=== PATIENT | female | born 1950 | race Two or more races ===

== ENCOUNTER 2025-01-14 01:35 | Inpatient (IN) | payer OTHER ==
[~2025-01-14] VITALS: Ht 149.9 cm; Wt 55.1 kg
--- NOTE | 2025-01-14 02:04 | ECG ---
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
[2025-01-14 02:15] LABS: Hematocrit 49.8 % (36.0-46.0); Hemoglobin 16.8 g/dL (12.2-16.2); Mean Corpuscular Hemoglobin 31.9 pg (28.0-32.0); Mean Corpuscular Volume 94.5 fL (80.0-100.0); Nucleated Red Blood Cells % 0.1 %
--- NOTE | 2025-01-14 02:15 | ED.PDOC ---
History of Present Illness HPI Comments 74 year old female with PMHx HTN presents to the ED with a chief complaint of RT flank pain onset today. Patient states she began experiencing RLQ pain radiating to RT flank as well as rectal pain described as pressure sensation, nausea/vomiting, urinary frequency. Currently rates pain 10/10. Denies chest pa in, shortness of breath, hematuria, hematemesis, diarrhea, constipation, fever, chills. No other symptoms or modifying factors present at this time. PHYSICAL EXAM: General: Awake, alert and oriented. No acute distress. Skin: Skin in warm, dry and intact. Appropriate color for ethnicity. HEENT: The head is normocephalic and atraumatic. Conjunctivae are clear without exudates or hemorrhage. Sclera is non-icteric. Eyelids are normal in appearance without swelling or lesions. Oral mucosa is pink and moist Neck: The neck is supple with normal range of motion. No JVD. Cardiac: Heart rate and rhythm are normal. No murmurs, gallops, or rubs are auscultated. Respiratory: No signs of respiratory distress. Lung sounds are clear in all l obes bilaterally without rales, rhonchi, or wheezes. Abdominal: Abdomen is soft, right lower quadrant/right flank tenderness Extremities: Upper and lower extremities are atraumatic in appearance without deformity or edema. Neurological: The patient is awake, alert and oriented to person, place, and time with normal speech. Speech is clear. There is no facial asymmetry. Psychiatric: Appropriate mood and affect. Good judgement and insight. REVIEW OF SYSTEMS: General: No fever, no chills, or fatigue HEENT: No sore throat, no earache, no congestion, no neck pain. Cardiac: No chest pain. No palpitations. Lungs: No shortness of breath, no cough. GI: RLQ pain. rectal pain. no diarrhea, no constipation, no abdominal pain : RT flank pain. urinary frequency. No dysuria. No hematuria. Musculoskeletal: No joint pain , no joint swelling, no extremity edema. Skin: No rash, no itching. Neuro: No headache, no dizziness, no weakness (And as sated in HPI) Chief Complaint: Flank Pain Time Seen by MD: 02:00 Reviewed Notes: Medications, Allergies Allergies: Coded Allergies: Morphine (Verified Allergy, Unknown, 01/14/25) Uncoded Allergies: surgical tape (Allergy, Mild, 01/14/25) "breakdown skin, burn" Home Meds Reported Medications Fluoxetine HCl (Fluoxetine HCl) 20 Mg Cap, 2 CAP PO QAM 01/14/25 Simvastatin (Simvastatin) 40 Mg Tab, 1 TAB PO 01/14/25 Clonidine Hydrochloride (Clonidine Hcl) 0.1 Mg Tab, 1 TAB PO BID 01/14/25 Information Source: Patient, Spouse Mode of Arrival: Ambulatory Severity: Moderate Timing: Hours Duration: Since onset Prehospital treatment: None Past Medical History PAST MEDICAL HISTORY: HTN Surgical History: Denies all surgeries [employer]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 Was a procedure done?: No Differential Dx Considerations may include: Differential diagnosis includes but is not limited to pyelonephritis, nephrolithiasis, AAA, musculoskeletal pain, urinary tract infection, cholecystitis, appendicitis, other X-Ray, Labs, Meds, VS Vital Signs Date Time Temp Pulse Resp B/P (MAP) Pulse Ox O2 Delivery O2 Flow Rate FiO2 01/14/25 01:53 71 01/14/25 01:37 97.2 74 18 227/108 100 97.2 Lab Test 01/14/25 01:57 Range/Units White Blood Count 11.8 H 4.4-10.8 10^3/uL Red Blood Count 5.28 H 4.0-5.20 10^6/uL Hemoglobin 16.8 H 12.2-16.2 g/dL Hematocrit 49.8 H 36.0-46.0 % Mean Corpuscular Volume 94.5 80.0-100.0 fL Mean Corpuscular Hemoglobin 31.9 28.0-32.0 pg Mean Corpuscular Hemoglobin Concent 33.8 32.0-36.0 g/dL Red Cell Distribution Width 13.8 11.8-14.3 % Platelet Count 287 140-450 10^3/uL Mean Platelet Volume 8.5 6.9-10.8 fL Neutrophils (%) (Auto) 60.4 37.0-80.0 % Lymphocytes (%) (Auto) 28.5 10.0-50.0 % Monocytes (%) (Auto) 6.2 0.0-12.0 % Eosinophils (%) (Auto) 3.4 0.0-7.0 % Basophils (%) (Auto) 1.5 0.0-2.0 % Neutrophils # (Auto) 7.1 1.6-8.6 10 ^3/uL Lymphocytes # (Auto) 3.4 0.4-5.4 10 ^3/uL Monocytes # (Auto) 0.7 0-1.3 10 ^3/uL Eosinophils # (Auto) 0.4 0-0.8 10 ^3/uL Basophils # (Auto) 0.2 0-0.2 10 ^3/uL Nucleated Red Blood Cells 0.1 % Sodium Level 140 136-145 mmol/L Potassium Level 3.6 3.5-5.1 mmol/L Chloride Level 103 98-107 mmol/L Carbon Dioxide Level 23 20-31 mmol/L Anion Gap 14 5-15 Blood Urea Nitrogen 14 9-23 mg/dL Creatinine 0.92 0.550-1.02 mg/dL Glomerular Filtration Rate Calc 66 >90 mL/min BUN/Creatinine Ratio 15.2 10.0-20.0 Serum Glucose 109 H 74-106 mg/dL Calcium Level 10.2 8.7-10.4 mg/dL Current Medications Medications (Trade) Dose Ordered Sig/Cynthia Route Start Time Stop Time Status Last Admin Hydromorphone HCl (Dilaudid Injection) 0.5 mg ONCE ONCE IV 01/14/25 02:00 01/14/25 02:01 OH 01/14/25 05:58 Ondansetron HCl (Zofran) 4 mg ONCE ONCE IV 01/14/25 02:00 01/14/25 02:01 OH 01/14/25 05:58 Sodium Chloride 1,000 ml @ 1,000 mls/hr Q1H ONCE IV 01/14/25 02:00 01/14/25 02:59 OH 01/14/25 09:52 Clonidine HCl (Catapres Tablet) 0.1 mg ONCE ONCE PO 01/14/25 02:15 01/14/25 02:16 OH 01/14/25 05:53 Acetaminophen/ Hydrocodone Bitart ([place] 5/325MG Tab) 1 tab Q4HP PRN PO 01/14/25 05:30 01/14/25 17:07 Ondansetron HCl (Zofran) 4 mg Q4HP PRN IV 01/14/25 05:30 01/14/25 12:54 Sodium Chloride 1,000 ml @ 100 mls/hr Q10H ONCE IV 01/14/25 05:30 01/14/25 15:29 DC 01/14/25 12:54 Tamsulosin HCl (Flomax) 0.4 mg ONCE ONCE PO 01/14/25 05:30 01/14/25 08:47 DC 01/14/25 10:02 Lisinopril (Zestril Tablet) 20 mg ONCE ONCE PO 01/14/25 05:30 01/14/25 08:47 DC 01/14/25 09:14 Hydromorphone HCl (Dilaudid Injection) 0.5 mg Q4HPRN PRN IV 01/14/25 05:30 01/14/25 14:34 Time of 1ST Reevaluation: 02:30 Reevaluation 1ST: Unchanged Patient Education/Counseling: Diagnosis, Treatment, Need For Follow Up Family Education/Counseling: Diagnosis, Treatment, Need For Follow Up SEPSIS Sepsis Screen Date sepsis recognized/suspect: Jan 14, 2025 Time Sepsis recognized/suspect: 014 Recent Procedure: No On Antibiotic Therapy: No Respiratory Rate >20: No Heart Rate >90: No Temp<36 C (96.8 F) or >38.3 C: No SBP <90 or MAP <65 mmHG: No New Acute Mental Status Change: No Is the patient on CPAP, BIPAP,: No Physician Orders Ct Ab Pel Wo Con-No Oral Or Iv (01/14/25 01:59) Vital Signs Date Time Temp Pulse Resp B/P (MAP) Pulse Ox O2 Delivery O2 Flow Rate FiO2 01/14/25 01:53 71 01/14/25 01:37 97.2 74 18 227/108 100 97.2 Laboratory Tests Test 01/14/25 01:57 White Blood Count 11.8 10^3/uL (4.4-10.8) H Departure 1 Departure Time of Disposition: 03:55 Impression: Primary Impression: Nephrolithiasis Additional Impressions: Hydronephrosis Hypertension Disposition: ADMITTED INPATIENT Condition: Other Comments Patient admitted to hospitalist service for further treatment, evaluation and monitoring. Critical Care Note Critical Care Time?: No Stability Stability form required: No Heart Score Heart Score: Heart Score Response (Comments) Value History N/A 0 EKG N/A 0 Age N/A 0 Risk Factors N/A 0 Troponin N/A 0 Total 0 I personally scribed for GUS MONTIEL MD ([email or web address]) on 01/14/25 at 02:15. Electronically submitted by Erika Dowell ([email or web address]). GUS MONTIEL MD Jan 14, 2025 02:15
[2025-01-14 02:27] LABS: Chloride 103 mmol/L (98-107); Potassium 3.6 mmol/L (3.5-5.1); Sodium 140 mmol/L (136-145)
[2025-01-14 02:28] LABS: Anion Gap 14 (5-15); Calcium 10.2 mg/dL (8.7-10.4); Carbon Dioxide 23 mmol/L (20-31)
[2025-01-14 02:33] LABS: BUN/Creatinine Ratio 15.2 (10.0-20.0); Blood Urea Nitrogen 14 mg/dL (9-23)
[2025-01-14 02:42] LABS: Glucose 109 mg/dL (74-106)
--- NOTE | 2025-01-14 03:07 | DVH ---
Exam: CT CT AB PEL WO CON-NO ORAL OR IV History: Flank Pain Comparison Study: None TECHNIQUE: Multidetector CT of the abdomen and pelvis was performed from lung bases to pubic symphysis. Imaging was performed without IV contrast. Axial, coronal and sagittal multiplanar reformats were obtained from the axial data set by the technologist. Radiation optimization: All CT scans at this facility use at least one of these dose optimization techniques: automated exposure control mA and/or kV adjustment per patient size (includes targeted exams where dose is matched to clinical indication) or iterative reconstruction. Radiation Dose Information: CT Dose: CTDI volume is 5.64 mGy. Dose-length product is 299.46 mGy*cm FINDINGS: Evaluation of solid organs is limited due to lack of intravenous contrast use. Imaged portions of the lung bases appear unremarkable. There are coronary artery calcifications. Calcified left hilar lymph node. There is a small to moderate hiatal hernia. Several hypodensities within the liver appear to represent cysts, however there is a ill-defined hypodensity measuring 5.3 cm in the right hepatic lobe which is indeterminate. Several hepatic calcifications. Gallbladder appears absent. Spleen, pancreas appear unremarkable. The adrenal glands appear mildly prominent without focal nodule. There is moderate to severe right hydronephrosis secondary to 0.9 cm calculus in the distal right ureter the ureter is tortuous with potentially a additional 0.4 cm calculus in the mid ureter. 3 additional 1 mm calculi are noted in the right kidney and 2 additional nonobstructing 1 mm calculi are noted in the left kidney. There is perinephric fat stranding and fluid. No evidence of bowel obstruction or focal bowel wall thickening. Scattered colonic diverticulosis. Chronic appearing compression deformity of L2 and T12. No suspicious osseous lesion. IMPRESSION: 1. Moderate to severe right hydronephrosis secondary to 0.9 cm calculus in the distal right ureter. The ureter is tortuous with probable additional 0.4 cm calculus in the mid ureter. 2. Additional nonobstructing bilateral renal calculi. 3. Indeterminate 5.3 cm hypodensity in the right hepatic lobe, neoplasm must be excluded. Recommend further evaluation with nonemergent CT/ MRI of the abdomen with and without contrast. 4. Small to moderate hiatal hernia. 5. Colonic diverticulosis.
[2025-01-14] MEDS ORDERED: ACETAMINOPHEN 325 MG TAB PO PRN (05:30)
--- NOTE | 2025-01-14 05:36 | DVHHPRES ---
History of Present Illness Resident Creating Document: EMELIA PINEDA History of Present Illness Patient is a 74-year-old female with past medical history of HTN, presented to [facility] ED with complaint of right flank pain that began today. The patient reports initial onset of right lower quadrant pain radiating to the right flank, accompanied by rectal pressure, nausea, vomiting, and urinary frequency. She currently rates the pain as 10/10. She denies chest pain, shortness of breath, hematuria, hematemesis, diarrhea, constipation, fever, and chills. On evaluation in the ED, patient is afebrile, blood pressure is 227/109 mmHg, vitals are stable. Initial labs show WBC 11.8, hemoglobin 16.8, hematocrit 49.8. Abdominal CT shows moderate to severe right hydronephrosis secondary to 0.9 cm calculus in the distal right ureter. The patient was placed NPO, started on IV antibiotics and IV fluids. Patient is admitted for further evaluation and management. Review of Systems Review of Systems Eyes: No Pain, No Vision change, No Conjunctivae inflammation, No Eyelid inflammation, No Other, No Redness ENT: No Ear pain, No Ear discharge, No Nose pain, No Nose discharge, No Nose congestion, No Mouth pain, No Mouth swelling, No Throat pain, No Throat swelling, No Other Cardiovascular: No Chest Pain, No Palpitations, No Orthopnea, No Paroxysmal No Dyspnea, No Edema, No Lt Headedness, No Other Respiratory: No Cough, No Dry, No Shortness of breath, No SOB with exertion, No Wheezing, No Hemoptysis, No Pleuritic Pain, No Sputum, No Other Gastrointestinal: Nausea, Vomiting, Abdominal Pain, flank pain, No Diarrhea, No Constipation, No Melena, No Hematochezia, No Other Genitourinary: No Dysuria, No Frequency, No Incontinence, No Hematuria, No Retention, No Other Musculoskeletal: No other, No neck pain, No shoulder pain, No arm pain, No back pain, No hand pain, No leg pain, No foot pain Skin: No Rash, No Lesions, No Jaundice, No Bruising, No Other Exam Vital Signs Vital Signs Date Time Temp Pulse Resp B/P (MAP) Pulse Ox O2 Delivery O2 Flow Rate FiO2 01/14/25 01:53 71 01/14/25 01:37 97.2 18 227/108 100 97.2 Exam General Appearance: Cooperative. Well developed. Well nourished. NAD Head Exam: Normal inspection Neck Exam: Normal inspection. Non-tender. Normal alignment Pulmonary/Respiratory: Chest non-tender. Clear bilateral breath sounds, no crackles, no wheezing. Cardiovascular/Chest: Regular rate and rhythm. No murmurs. No JVD. Peripheral Pulses: 2+ Radial (R). 2+ Radial (L). 2+ Pedal (R). 2+ Pedal (L) Abdominal Exam: Normal bowel sounds. Soft. normal abdomen, no visible veins, Nontender. No hepatospenomegaly. No masses Gastrointestinal: RLQ pain. rectal pain. no diarrhea, no constipation, no abdominal pain Genitourinary: RT flank pain. urinary frequency. No dysuria. No hematuria. Ankle Exam: Negative ankle edema Lower extremities: Negative lower extremity edema Neuro/Mental Status: A&O x4. Coherent. Thoughts/Psych: Normal thought pattern. Appropriate mood and affect. Good judgement and insight Skin Exam: Normal inspection. Normal color. Warm. Dry Labs/Xrays Labs Test 01/14/25 01:57 Range/Units White Blood Count 11.8 H 4.4-10.8 10^3/uL Red Blood Count 5.28 H 4.0-5.20 10^6/uL Hemoglobin 16.8 H 12.2-16.2 g/dL Hematocrit 49.8 H 36.0-46.0 % Mean Corpuscular Volume 94.5 80.0-100.0 fL Mean Corpuscular Hemoglobin 31.9 28.0-32.0 pg Mean Corpuscular Hemoglobin Concent 33.8 32.0-36.0 g/dL Red Cell Distribution Width 13.8 11.8-14.3 % Platelet Count 287 140-450 10^3/uL Mean Platelet Volume 8.5 6.9-10.8 fL Neutrophils (%) (Auto) 60.4 37.0-80.0 % Lymphocytes (%) (Auto) 28.5 10.0-50.0 % Monocytes (%) (Auto) 6.2 0.0-12.0 % Eosinophils (%) (Auto) 3.4 0.0-7.0 % Basophils (%) (Auto) 1.5 0.0-2.0 % Neutrophils # (Auto) 7.1 1.6-8.6 10 ^3/uL Lymphocytes # (Auto) 3.4 0.4-5.4 10 ^3/uL Monocytes # (Auto) 0.7 0-1.3 10 ^3/uL Eosinophils # (Auto) 0.4 0-0.8 10 ^3/uL Basophils # (Auto) 0.2 0-0.2 10 ^3/uL Nucleated Red Blood Cells 0.1 % Sodium Level 140 136-145 mmol/L Potassium Level 3.6 3.5-5.1 mmol/L Chloride Level 103 98-107 mmol/L Carbon Dioxide Level 23 20-31 mmol/L Anion Gap 14 5-15 Blood Urea Nitrogen 14 9-23 mg/dL Creatinine 0.92 0.550-1.02 mg/dL Glomerular Filtration Rate Calc 66 >90 mL/min BUN/Creatinine Ratio 15.2 10.0-20.0 Serum Glucose 109 H 74-106 mg/dL Calcium Level 10.2 8.7-10.4 mg/dL SEPSIS Sepsis Screen Date sepsis recognized/suspect: Jan 14, 2025 Time Sepsis recognized/suspect: 0142 Recent Procedure: No On Antibiotic Therapy: No Respiratory Rate >20: No Heart Rate >90: No Temp<36 C (96.8 F) or >38.3 C: No SBP <90 or MAP <65 mmHG: No New Acute Mental Status Change: No Is the patient on CPAP, BIPAP,: No Physician Orders Ct Ab Pel Wo Con-No Oral Or Iv (01/14/25 01:59) Urinalysis (01/14/25 01:59) Vital Signs Date Time Temp Pulse Resp B/P (MAP) Pulse Ox O2 Delivery O2 Flow Rate FiO2 01/14/25 01:53 71 01/14/25 01:37 97.2 74 18 227/108 100 97.2 Laboratory Tests Test 01/14/25 01:57 White Blood Count 11.8 10^3/uL (4.4-10.8) H Assessment/Plan Assessment/Plan Right nephrolithiasis Right hydronephrosis Nonobstructing bilateral renal calculi Urine tract infection Active abdominal pain due to above Abdomen/Pelvis CT: Moderate to severe right hydronephrosis secondary to 0.9 cm calculus in the distal right ureter. The ureter is tortuous with probable additional 0.4 cm calculus in the mid ureter. Additional nonobstructing bilateral renal calculi. Urology consult UA and UDS urine culture Hepatic panel Magnesium pain management with Tylenol, [place] and Dilaudid Ceftriaxone IV daily Tamsulosin 0.4 mg p.o. Zofran 4 mg IV q4h IV NS 100 MLS/HR one Right hepatic nodule Hiatal hernia Colonic diverticulosis Abdomen/Pelvis CT: Indeterminate 5.3 cm hypodensity in the right hepatic lobe, neoplasm must be excluded. Recommend further evaluation with nonemergent CT/ MRI of the abdomen with and without contrast. Small to moderate hiatal hernia. Colonic diverticulosis. Hypertensive urgency Clonidine 0.1 MG PO once Lisinopril 20 MG PO daily Diet: Cardiac Goals of care: Full code, discussed for >30 minutes on 01/14/25 Plan discussed with patient Plan discussed with Dr. La Plan discussed with: Patient, Spouse Date of Service: Jan 14, 2025 Billing Provider: DEBORA LA MD Common Visit Codes: 92149-AGIBBMT INP/OBS CARE (HIGH) Secondary Visit Codes: 31419-ISKHACIJ CARE PLAN 30 MINUTES EMELIA PINEDA RESIDENT Jan 14, 2025 05:36
[2025-01-14] MEDS: ONDANSETRON HCL 4 MG/2 ML VIAL IV ONE (05:58)
[2025-01-14] MEDS: HYDROmorphone HCL 2 MG/ML VL/or syr IV ONE ×2 (05:58→09:23)
[2025-01-14 07:18] LABS: Hematocrit 44.5 % (36.0-46.0); Hemoglobin 14.9 g/dL (12.2-16.2); Mean Corpuscular Hemoglobin 31.6 pg (28.0-32.0); Mean Corpuscular Volume 94.3 fL (80.0-100.0); Nucleated Red Blood Cells % 0.0 %
[2025-01-14 07:34] LABS: Alanine Aminotransferase 26 U/L (7-40); Albumin 4.3 g/dL (3.2-4.8); Alkaline Phosphatase 97 U/L (46-116); Anion Gap 12 (5-15); BUN/Creatinine Ratio 17.5 (10.0-20.0); Blood Urea Nitrogen 10 mg/dL (9-23); Calcium 9.4 mg/dL (8.7-10.4); Carbon Dioxide 22 mmol/L (20-31); Potassium 3.8 mmol/L (3.5-5.1); Sodium 142 mmol/L (136-145); Total Protein 7.1 g/dL (5.7-8.2)
[2025-01-14 07:35] LABS: Albumin 4.4 g/dL (3.2-4.8); Alkaline Phosphatase 102.0 U/L (46-116); Chloride 108 mmol/L (98-107); Glucose 112 mg/dL (74-106); Magnesium 2.0 mg/dL (1.6-2.6); Total Protein 7.1 g/dL (5.7-8.2)
[2025-01-14 07:37] LABS: Bilirubin, Direct 0.3 mg/dL (<0.3); Bilirubin, Total 1.9 mg/dL (0.2-1.0)
[2025-01-14 07:38] LABS: Bilirubin, Total 1.9 mg/dL (0.2-1.0)
[2025-01-14 07:40] LABS: Alanine Aminotransferase 32.0 U/L (7-40)
[2025-01-14] MEDS: LISINOPRIL 20 MG TAB PO ONE (09:14)
[2025-01-14] MEDS: LISINOPRIL 20 MG TAB PO SCH (09:27)
[2025-01-14] MEDS: SODIUM CHLORIDE 0.9% 1,000 ML IV ONE ×2 (09:52→12:54)
[2025-01-14 09:56] VITALS: BP 148/85; PULSE 58; RESP 17; TEMP 97.8; O2SAT 96
--- NOTE | 2025-01-14 10:00 | DVH ---
INDICATION: hypodense lesion in the liver TECHNIQUE: Multiple real-time sonographic images were obtained of the right upper quadrant. COMPARISON: US ABDOMEN COMPLETE on DOS: 10/10/21 FINDINGS: The liver demonstrates heterogeneous echotexture. There is a echogenic mass measuring 4.4 cm. Hepatic cysts measuring up to 2.8 cm. The liver measures 14 cm. There is no intrahepatic or extrahepatic ductal dilatation. The common duct measures 5 mm. Gallbladder is surgically absent. The right kidney measures 10 cm. The right kidney is normal in contour, size, and shape. The echogenicity is normal. Hydronephrosis is better seen on recent CT. The pancreas is not well visualized due to overlying bowel gas. IMPRESSION: Coarsened liver echotexture suggestive of chronic liver disease. Echogenic mass measuring 4.4 cm in the right hepatic lobe is suspicious. Recommend further evaluation MRI liver phase protocol.
[2025-01-14] MEDS: TAMSULOSIN HYDROCHLORIDE 0.4 MG CAP PO ONE (10:02)
--- NOTE | 2025-01-14 10:54 | DVHINCON2 ---
Date of service: Jan 14, 2025 Referring Physician Hopitalist Reason for Consultation 9 mm right UVJ stone, impacted History of Present Illness 74 year old female with PMHx HTN presents to the ED with a chief complaint of RT flank pain onset today. Patient states she began experiencing RLQ pain radiating to RT flank as well as rectal pain described as pressure sensation, nausea/vomiting, urinary frequency. Currently rates pain 10/10. Denies chest pain, shortness of breath, hematuria, hematemesis, diarrhea, constipation, fever, chills. No other symptoms or modifying factors present at this time. Past Medical History HTN Allergies: Coded Allergies: Morphine (Verified Allergy, Unknown, 01/14/25) Uncoded Allergies: surgical tape (Allergy, Mild, 01/14/25) "breakdown skin, burn" Current Medications Current Medications Medications (Trade) Dose Ordered Sig/Cynthia Route PRN Reason Start Time Stop Time Status Last Admin Acetaminophen/ Hydrocodone Bitart (Maribel 5/325MG Tab) 1 tab Q4HP PRN PO MODERATE PAIN (4-6 PAIN SCALE) 01/14/25 05:30 Ondansetron HCl (Zofran) 4 mg Q4HP PRN IV NAUSEA / VOMITING 01/14/25 05:30 Acetaminophen (Tylenol Tablet) 650 mg Q6HP PRN PO PAIN SCALE 1-3 OR TEMP>100.4 01/14/25 05:30 Tamsulosin HCl (Flomax) 0.4 mg QPM PO 01/14/25 18:00 Ceftriaxone Sodium 50 ml @ 100 mls/hr DAILY@09 IV 01/14/25 09:00 01/14/25 10:08 Lisinopril (Zestril Tablet) 20 mg DAILY PO 01/14/25 10:00 Hydromorphone HCl (Dilaudid Injection) 0.5 mg Q4HPRN PRN IV SEVERE PAIN (7-10 PAIN SCALE) 01/14/25 05:30 Review of Systems General: No fever, no chills, or fatigue HEENT: No sore throat, no earache, no congestion, no neck pain. Cardiac: No chest pain. No palpitations. Lungs: No shortness of breath, no cough. GI: RLQ pain. rectal pain. no diarrhea, no constipation, no abdominal pain : RT flank pain. urinary frequency. No dysuria. No hematuria. Musculoskeletal: No joint pain , no joint swelling, no extremity edema. Skin: No rash, no itching. Neuro: No headache, no dizziness, no weakness (And as sated in HPI) Vital Signs Vital Signs Date Time Temp Pulse Resp B/P (MAP) Pulse Ox O2 Delivery O2 Flow Rate FiO2 01/14/25 09:56 97.8 58 17 148/85 (106) 96 97.8 Physical Exam General: Awake, alert and oriented. No acute distress. Skin: Skin in warm, dry and intact. Appropriate color for ethnicity. HEENT: The head is normocephalic and atraumatic. Conjunctivae are clear without exudates or hemorrhage. Sclera is non-icteric. Eyelids are normal in appearance without swelling or lesions. Oral mucosa is pink and moist Neck: The neck is supple with normal range of motion. No JVD. Cardiac: Heart rate and rhythm are normal. No murmurs, gallops, or rubs are auscultated. Respiratory: No signs of respiratory distress. Lung sounds are clear in all lobes bilaterally without rales, rhonchi, or wheezes. Abdominal: Abdomen is soft, non-tender without distention, guarding or rigidity. Bowel sounds are present and normoactive in all four quadrants. Extremities: Upper and lower extremities are atraumatic in appearance without deformity or edema. Neurological: The patient is awake, alert and oriented to person, place, and time with normal speech. Speech is clear. There is no facial asymmetry. Psychiatric: Appropriate mood and affect. Good judgement and insight. Labs/Diagnostic Data Labs Test 01/14/25 08:32 01/14/25 06:19 Range/Units White Blood Count 11.2 H 4.4-10.8 10^3/uL Red Blood Count 4.72 4.0-5.20 10^6/uL Hemoglobin 14.9 12.2-16.2 g/dL Hematocrit 44.5 # 36.0-46.0 % Mean Corpuscular Volume 94.3 80.0-100.0 fL Mean Corpuscular Hemoglobin 31.6 28.0-32.0 pg Mean Corpuscular Hemoglobin Concent 33.5 32.0-36.0 g/dL Red Cell Distribution Width 13.8 11.8-14.3 % Platelet Count 256 140-450 10^3/uL Mean Platelet Volume 8.8 6.9-10.8 fL Neutrophils (%) (Auto) 81.9 H 37.0-80.0 % Lymphocytes (%) (Auto) 13.5 10.0-50.0 % Monocytes (%) (Auto) 3.8 0.0-12.0 % Eosinophils (%) (Auto) 0.3 0.0-7.0 % Basophils (%) (Auto) 0.5 0.0-2.0 % Neutrophils # (Auto) 9.2 H 1.6-8.6 10 ^3/uL Lymphocytes # (Auto) 1.5 0.4-5.4 10 ^3/uL Monocytes # (Auto) 0.4 0-1.3 10 ^3/uL Eosinophils # (Auto) 0 0-0.8 10 ^3/uL Basophils # (Auto) 0.1 0-0.2 10 ^3/uL Nucleated Red Blood Cells 0.0 % Sodium Level 142 136-145 mmol/L Potassium Level 3.8 3.5-5.1 mmol/L Chloride Level 108 H 98-107 mmol/L Carbon Dioxide Level 22 20-31 mmol/L Anion Gap 12 5-15 Blood Urea Nitrogen 10 9-23 mg/dL Creatinine 0.57 # 0.550-1.02 mg/dL Glomerular Filtration Rate Calc 96 >90 mL/min BUN/Creatinine Ratio 17.5 10.0-20.0 Serum Glucose 112 H 74-106 mg/dL Hemoglobin A1c 4.9 <5.7 % A1C Calcium Level 9.4 8.7-10.4 mg/dL Magnesium Level 2.0 1.6-2.6 mg/dL Total Bilirubin 1.9 H 0.2-1.0 mg/dL Direct Bilirubin 0.3 <0.3 mg/dL Aspartate Amino Transferase (AST) 38 13-40 U/L Alanine Aminotransferase (ALT) 26 7-40 U/L Alkaline Phosphatase 97 46-116 U/L Total Protein 7.1 5.7-8.2 g/dL Albumin 4.3 3.2-4.8 g/dL Carcinoembryonic Antigen 6.60 <=5.0 ng/mL Vitamin B12 Level 564 211-911 pg/mL Vitamin D 25-Hydroxy 53.3 30.0-100 ng/mL Thyroid Stimulating Hormone (TSH) 0.61 0.55-4.78 uIU/mL PATIENT: AYAZ BRAVOAACCT: [id number] UNIT: [id number] : 1950 LOC: ER ROOM / BED: / AGE / SEX: 74 / F ADM STATUS: REG ER SERVICE [id number] ORDERING PHYSICIAN: GUS MONTIEL MD PROCEDURE(s): ABPL - CT AB PEL WO CON-NO ORAL OR IV REASON: Flank Pain ORDER NUMBER(s): [id number], ACCESSION NUMBER(s): [id number] Exam: CT CT AB PEL WO CON-NO ORAL OR IV History: Flank Pain Comparison Study: None TECHNIQUE: Multidetector CT of the abdomen and pelvis was performed from lung bases to pubic symphysis. Imaging was performed without IV contrast. Axial, coronal and sagittal multiplanar reformats were obtained from the axial data set by the technologist. Radiation optimization: All CT scans at this facility use at least one of these dose optimization techniques: automated exposure control mA and/or kV adjustment per patient size (includes targeted exams where dose is matched to clinical indication) or iterative reconstruction. Radiation Dose Information: CT Dose: CTDI volume is 5.64 mGy. Dose-length product is 299.46 mGy*cm FINDINGS: Evaluation of solid organs is limited due to lack of intravenous contrast use. Imaged portions of the lung bases appear unremarkable. There are coronary artery calcifications. Calcified left hilar lymph node. There is a small to moderate hiatal hernia. Several hypodensities within the liver appear to represent cysts, however there is a ill-defined hypodensity deniz uring 5.3 cm in the right hepatic lobe which is indeterminate. Several hepatic calcifications. Gallbladder appears absent. Spleen, pancreas appear unremarkable. The adrenal glands appear mildly prominent without focal nodule. There is moderate to severe right hydronephrosis secondary to 0.9 cm calculus in the distal right ureter the ureter is tortuous with potentially a additional 0.4 cm calculus in the mid ureter. 3 additional 1 mm calculi are noted in the right kidney and 2 additional nonobstructing 1 mm calculi are noted in the left kidney. There is perinephric fat stranding and fluid. No evidence of bowel obstruction or focal bowel wall thickening. Scattered colonic diverticulosis. Chronic appearing compression deformity of L2 and T12. No suspicious osseous lesion. IMPRESSION: 1. Moderate to severe right hydronephrosis secondary to 0.9 cm calculus in the distal right ureter. The ureter is tortuous with probable additional 0.4 cm calculus in the mid ureter. 2. Additional nonobstructing bilateral renal calculi. 3. Indeterminate 5.3 cm hypodensity in the right hepatic lobe, neoplasm must be excluded. Recommend further evaluation with nonemergent CT/ MRI of the abdomen with and without contrast. 4. Small to moderate hiatal hernia. 5. Colonic diverticulosis. ATED BY: DAYSI CR MD DICTATED DATE/TIME: 01/14/25305 SIGNED BY: DAYSI CR MD SIGNED DATE/TIME: 01/14/25305 Assessment Impacted 9 mm right UVJ stone Right hydronephrosis, severe Plan/Recommendation Right PNT placement Outpatient right URSLL TBA Plan discussed with: Patient, Other ROSAURA ACOSTA MD Jan 14, 2025 10:54
[2025-01-14 11:38] LABS: Urine Protein, UAD Negative (Negative)
[2025-01-14 11:48] LABS: Amphetamine Screen, Urine Neg (NEGATIVE); Barbiturate Scree,Urine Neg (NEGATIVE); Benzodiazephine Screen, Urine Neg (NEGATIVE); Cannabinoid Screen, Urine Pos (NEGATIVE); Cocaine Screen, Urine Neg (NEGATIVE); Opiate Scree,Urine Neg (NEGATIVE); Phencyclidine Screen, Urine Neg (NEGATIVE)
[2025-01-14] MEDS: ONDANSETRON HCL 4 MG/2 ML VIAL IV PRN (12:54)
[2025-01-14 13:00] VITALS: BP 171/89; PULSE 66; RESP 20; TEMP 97.9; O2SAT 96
--- NOTE | 2025-01-14 13:04 | DVH ---
Technique: Real-time ultrasound images through the bladder. Indication: look for ureteral jetting Comparison: 01/14/2025 Findings: Bladder volume of 88 cc. Bladder wall measures 3 mm in thickness. The bilateral ureteral jets are not definitively visualized Impression: Bilateral ureteral jets not definitively visualized.
[2025-01-14] MEDS: HYDROmorphone HCL 2 MG/ML VL/or syr IV PRN (14:34)
[2025-01-14 16:41] VITALS: BP_SYST 110; BP_SYST 168; BP_DIAS 77; BP_DIAS 89; PULSE 103; PULSE 69; RESP 18; RESP 20; TEMP 97.6; TEMP 98.4; O2SAT 96; O2SAT 99
--- NOTE | 2025-01-14 16:48 | DVH ---
CLINICAL HISTORY: ABNORMAL CT TECHNIQUE: MRI of the abdomen was performed with and without IV contrast. COMPARISON: US ABDOMEN COMPLETE on DOS: 10/10/21 FINDINGS: The spleen, pancreas, adrenal glands, and left kidney are unremarkable. The gallbladder is absent. There is [id number] right hydroureteronephrosis and perinephric fluid secondary to stone seen on CT performed earlier in the day. At the right hepatic dome, there is a 5.6 cm T2 hyperintense lesion which demonstrates arterial discontinuous hyperenhancement which increases on portal venous and equilibrium phase images, and compatible with a hemangioma. There are numerous scattered liver cysts. The abdominal aorta is normal in course and caliber. There is no free intraperitoneal fluid. No enlarged lymph node is see n. IMPRESSION: 5.6 cm right hepatic lobe hemangioma. [id number] right hydroureteronephrosis with perinephric fluid. This is secondary to distal ureteral stone seen on CT performed earlier in the day. Cholecystectomy.
[2025-01-14] MEDS ORDERED: FLUO-470 PO (16:57)
[2025-01-14] MEDS ORDERED: CLON0.1T PO (16:57)
[2025-01-14] MEDS ORDERED: SIMV40TA18 PO (16:57)
[2025-01-14] MEDS: GADOTERATE MEG 10 MMOL/20ml INJ (0.5MMOL/ml) IV ONE (16:59)
[2025-01-14 17:00] VITALS: BP 186/99; PULSE 66; RESP 18; TEMP 98; O2SAT 97
[2025-01-14] MEDS: HYDROcodone-ACET 5/325MG TAB PO PRN (17:07)
[2025-01-14] MEDS: TAMSULOSIN HYDROCHLORIDE 0.4 MG CAP PO SCH (18:22)
[2025-01-14 18:45] LABS: INR 1.01 (0.9-1.15); Partial Thromboplastin Time 29.3 SEC (24.5-34.5); Prothrombin Time 10.7 sec (9.3-11.8)
--- NOTE | 2025-01-14 19:30 | DVHPNRES ---
Progress Note Date Seen: Jan 14, 2025 Resident Creating Document: PRECIOUS URBINA RESIDENT Medical Necessity Reason Pt with a Central, PICC or Fol: No Subjective Review of Systems Tabitha Hopkins is a 74-year old female with past medical history of hypertension who presented to the ED with a chief complaint of right flank pain that began early this morning. The patient stated that the pain started in the right lower quadrant and radiated to the right flank and back, rated as 10/10 in intensity, with no aggravating or relieving factors. It was associated with nausea, vomiting, rectal pressure and decreased urine output. The patient stated that she had an episode of similar pain 3 weeks back and was due to get CT abdomen outpatient, when she had a recurrence of the pain and had to come to the ED. She denies any fever, chills, fatigue or recent weight loss. Past medical history: Hypertension Past surgical history: Cholecystectomy Social & Personal history: Lives at home with family Smoking: smokes marijuana alcohol, drugs: Denies Allergies: Morphine, surgical tape Patient seen and examined at bedside. Patient is alert and oriented to time, place person and responding to all questions. Eyes: No Pain, No Vision change, No Conjunctivae inflammation, No Eyelid inflammation, No Redness ENT: No Ear pain, No Ear discharge, No Nose pain, No Nose discharge, No Nose congestion, No Mouth pain, No Mouth swelling, No Throat pain, No Throat swelling Cardiovascular: No Chest Pain, No Palpitations, No Orthopnea, No Paroxysmal No Dyspnea, No Edema, No Lt Headedness Respiratory: No Cough, No Dry, No Shortness of breath, No SOB with exertion, No Wheezing, No Hemoptysis, No Pleuritic Pain, No Sputum Gastrointestinal: No Nausea, No Vomiting, Abdominal Pain, No Diarrhea, No Constipation, No Melena, No Hematochezia Genitourinary: No Dysuria, No Frequency, No Incontinence, No Hematuria, No Retention, right flank pain, decreased urine output Objective vital signs Vital Sign Date Time Temp Pulse Resp B/P (MAP) Pulse Ox O2 Delivery O2 Flow Rate FiO2 01/14/25 17:01 69 18 168/89 01/14/25 17:00 98.0 97 98.0 01/14/25 09:22 Room Air* 0 21 medications Current Medications Medications Dose Ordered Sig/Cynthia Route Start Time Stop Time Status Last Admin Dose Admin Acetaminophen/ Hydrocodone Bitart 1 tab Q4HP PRN PO 01/14/25 05:30 01/14/25 17:07 1 TAB Ondansetron HCl 4 mg Q4HP PRN IV 01/14/25 05:30 01/14/25 12:54 4 MG Acetaminophen 650 mg Q6HP PRN PO 01/14/25 05:30 Tamsulosin HCl 0.4 mg QPM PO 01/14/25 18:00 01/14/25 18:22 0.4 MG Ceftriaxone Sodium 50 ml @ 100 mls/hr DAILY@09 IV 01/14/25 09:00 01/14/25 10:08 100 MLS/HR Lisinopril 20 mg DAILY PO 01/14/25 10:00 Hydromorphone HCl 0.5 mg Q4HPRN PRN IV 01/14/25 05:30 01/14/25 14:34 0.5 MG Metoprolol Tartrate 50 mg DAILY PO 01/15/25 10:00 Examination General Appearance: Cooperative. Well developed. Well nourished. NAD Head Exam: Normal inspection Neck Exam: Normal inspection. Non-tender. Normal alignment Pulmonary/Respiratory: Chest non-tender. Clear bilateral breath sounds, no crackles, no wheezing. Cardiovascular/Chest: Regular rate and rhythm. No murmurs. No JVD. Peripheral Pulses: 2+ Radial (R). 2+ Radial (L). 2+ Pedal (R). 2+ Pedal (L) Abdominal Exam: Normal bowel sounds. Soft. normal abdomen, no visible veins. No hepatospenomegaly. No masses, right CVA tenderness, right lower quadrant tenderness Ankle Exam: Negative ankle edema Lower extremities: Negative lower extremity edema Neuro/Mental Status: A&O x4. Coherent. Thoughts/Psych: Normal thought pattern. Appropriate mood and affect. Good judgement and insight Skin Exam: Normal inspection. Normal color. Warm. Dry laboratory and microbiology Laboratory Tests 01/14/25 06:19 Test 01/14/25 06:19 Range/Units Serum Glucose 112 H 74-106 mg/dL Labs and/or images reviewed: Labs reviewed by me, Image(s) reviewed by me Problem List/Assessment/Plan Problem List/Assessment/Plan # Acute right hydronephrosis # Obstructing right ureteral nephrolithiasis # Bilateral renal calculi, nonobstructing -abdomen/pelvis CT- moderate to severe right hydronephrosis secondary to 0.9 cm calculus in the distal right ureter, tortuous ureter with probable additional 0.4 cm calculus in mid ureter, nonobstructing bilateral renal calculi -urology consult-right PNT placement, outpatient right URSLL -IR consult for right PNT -straining of urine -bladder ultrasound- bilateral ureteral jets not definitively visualized -tamsulosin 0.4 mg po qpm -Dilaudid 0.5 mg q.4 PRN -IV ceftriaxone 1 g daily -urine culture pending # Right hepatic nodule, rule out malignancy -abdominal/pelvic CT showed 5.3 cm hypodensity in right hepatic lobe -liver ultrasound showed coarsened liver echotexture suggestive of chronic liver disease, echogenic mass measuring 4.4 cm in right hepatic lobe -MRI abdomen/pelvis with oral and IV contrast- 5.6 cm right hepatic lobe hemangioma -stool occult blood, pending -ordered CEA, AFP # Hypertensive urgency -metoprolol 50 mg p.o. daily and lisinopril 20 mg p.o. daily # Colonic diverticulosis without diverticulitis PUD prophylaxis: Not indicated DVT prophylaxis: Patient is ambulating Goals of care: Full code, discussed for >23 minutes Plan discussed with patient Plan discussed with Dr. Tapia Plan discussed with: Patient, Spouse My Orders My Orders Orders - PRECIOUS URBINA Procedure Category Date Status Time Stool Occult Blood LAB 01/14/25 Logged 15:30 Metoprolol Tartrate PHA 01/15/25 In Process Tablet (Lopressor Ta 10:00 Date of Service: Jan 14, 2025 Billing Provider: DEBORA TAPIA MD Common Visit Codes: [id number] INP/OBS CARE(HIGH) PRECIOUS URBINA RESIDENT Jan 14, 2025 19:29
[2025-01-14 20:00] VITALS: RESP 16; O2SAT 97
[2025-01-14] MEDS: hydrALAZINE HCL 20 MG/ML VL IV ONE (20:53)
[2025-01-14 21:00] VITALS: BP 168/89; PULSE 67; RESP 17; TEMP 98.2; O2SAT 96
[2025-01-15] VITALS (12 sets, daily range): BP systolic 131–167; BP diastolic 58–96; PULSE 65–128; RESP 13–18; TEMP 98.2–98.4; O2SAT 91–98
[2025-01-15 06:11] LABS: Hematocrit 42.8 % (36.0-46.0); Hemoglobin 14.7 g/dL (12.2-16.2); Mean Corpuscular Hemoglobin 32.1 pg (28.0-32.0); Mean Corpuscular Volume 93.4 fL (80.0-100.0); Nucleated Red Blood Cells % 0.0 %
[2025-01-15 06:22] LABS: Anion Gap 14 (5-15); Carbon Dioxide 23 mmol/L (20-31); Chloride 107 mmol/L (98-107); Sodium 144 mmol/L (136-145)
[2025-01-15 06:23] LABS: Calcium 9.2 mg/dL (8.7-10.4)
[2025-01-15 06:24] LABS: Potassium 3.1 mmol/L (3.5-5.1)
[2025-01-15 06:28] LABS: BUN/Creatinine Ratio 9.4 (10.0-20.0)
[2025-01-15 06:30] LABS: Blood Urea Nitrogen 5 mg/dL (9-23); Glucose 110 mg/dL (74-106)
[2025-01-15] MEDS ORDERED: POTASSIUM EFFERVESENT TAB 25 MEQ PO ONE (06:45)
[2025-01-15] MEDS: POTASSIUM CHLORIDE 40 MEQ, LIDOCAINE 1% (LOCAL ANESTH.) 4 ML in SODIUM CHL 0.9% 250 ML IV ONE (08:00)
[2025-01-15] MEDS: METOPROLOL TARTRATE 50 MG TAB PO SCH (09:38)
[2025-01-15] MEDS: IODIXANOL 320MG/ML 100ML BTL IV ONE ×2 (12:54→13:13)
[2025-01-15] MEDS: MIDAZOLAM HCL 2MG/2ML 2ml VIAL (1mg/ml) ONE (13:02)
[2025-01-15] MEDS: fentaNYL CITRATE 100 MCG/2 ML VL ONE (13:02)
[2025-01-15] MEDS: LIDOCAINE 2%HCL (LOCAL ANESTH.) INJ 20ML MDV ONE (13:03)
--- NOTE | 2025-01-15 14:24 | DVH ---
US US GUIDANCE FOR NEEDLE PLACEME HISTORY: NEPH TUBE INSERTION TECHNICAL DATA: Transverse and longitudinal sonographic images were obtained of the right kidney. COMPARISON: US LIVER on DOS: 01/14/25, US ABDOMEN COMPLETE on DOS: 10/10/21 FINDINGS: IMPRESSION: Ultrasound guidance was used in attempt to access the right kidney. However the renal collecting system was nondilated and no hydronephrosis was visualized. The patient may have passed her stone, or the collecting system decompressed itself. No nephrostomy tube was placed.
--- NOTE | 2025-01-15 15:28 | DVHPNRES ---
Progress Note Date Seen: Jan 15, 2025 Resident Creating Document: PRECIOUS URBINA RESIDENT Medical Necessity Reason Pt with a Central, PICC or Fol: No Subjective Review of Systems Tabitha Hopkins is a 74-year old female with past medical history of hypertension who presented to the ED with a chief complaint of right flank pain that began early this morning. The patient stated that the pain started in the right lower quadrant and radiated to the right flank and back, rated as 10/10 in intensity, with no aggravating or relieving factors. It was associated with nausea, vomiting, rectal pressure and decreased urine output. The patient stated that she had an episode of similar pain 3 weeks back and was due to get CT abdomen outpatient, when she had a recurrence of the pain and had to come to the ED. She denies any fever, chills, fatigue or recent weight loss. Past medical history: Hypertension Past surgical history: Cholecystectomy Social & Personal history: Lives at home with family Smoking: smokes marijuana alcohol, drugs: Denies Allergies: Morphine, surgical tape Patient seen and examined at bedside. Patient is alert and oriented to time, place person and responding to all questions. Eyes: No Pain, No Vision change, No Conjunctivae inflammation, No Eyelid inflammation, No Redness ENT: No Ear pain, No Ear discharge, No Nose pain, No Nose discharge, No Nose congestion, No Mouth pain, No Mouth swelling, No Throat pain, No Throat swelling Cardiovascular: No Chest Pain, No Palpitations, No Orthopnea, No Paroxysmal No Dyspnea, No Edema, No Lt Headedness Respiratory: No Cough, No Dry, No Shortness of breath, No SOB with exertion, No Wheezing, No Hemoptysis, No Pleuritic Pain, No Sputum Gastrointestinal: No Nausea, No Vomiting, Abdominal Pain, No Diarrhea, No Constipation, No Melena, No Hematochezia Genitourinary: No Dysuria, No Frequency, No Incontinence, No Hematuria, No Retention, right flank pain, decreased urine output 01/15/25- The patient was seen and evaluated at bedside. Her potassium was 3.1 this morning and was repleted. MRI abdomen showed 5.6 cm right hepatic lobe hemangioma. Results for tumor markers are AFP is 2.2, CA19-9 is 3 and CA125 is 16, all within normal limits. CEA is 6.6. Patient was scheduled for percutaneous nephrostomy tube placement, but it was not placed as no hydronephrosis was visualized. KUB showed no radiographic evidence of renal stone. Patient may have passed the stone, but she is still complaining of lower abdominal pain. Objective vital signs Vital Sign Date Time Temp Pulse Resp B/P (MAP) Pulse Ox O2 Delivery O2 Flow Rate FiO2 01/15/25 14:39 72 13 135/60 (85) 92 01/15/25 09:00 98.2 98.2 01/15/25 08:00 Nasal Cannula* 2 28 Total Intake and Output 01/14/25 01/14/25 01/15/25 15:00 23:00 07:00 Intake Total 1050 ml 890 ml 650 ml Balance 1050 ml 890 ml 650 ml medications Current Medications Medications Dose Ordered Sig/Cynthia Route Start Time Stop Time Status Last Admin Dose Admin Acetaminophen/ Hydrocodone Bitart 1 tab Q4HP PRN PO 01/14/25 05:30 01/15/25 09:38 1 TAB Ondansetron HCl 4 mg Q4HP PRN IV 01/14/25 05:30 01/14/25 12:54 4 MG Acetaminophen 650 mg Q6HP PRN PO 01/14/25 05:30 Tamsulosin HCl 0.4 mg QPM PO 01/14/25 18:00 01/14/25 18:22 0.4 MG Lisinopril 20 mg DAILY PO 01/14/25 10:00 01/15/25 09:37 20 MG Hydromorphone HCl 0.5 mg Q4HPRN PRN IV 01/14/25 05:30 01/14/25 14:34 0.5 MG Metoprolol Tartrate 50 mg DAILY PO 01/15/25 10:00 01/15/25 09:38 50 MG Examination General Appearance: Cooperative. Well developed. Well nourished. NAD Head Exam: Normal inspection Neck Exam: Normal inspection. Non-tender. Normal alignment Pulmonary/Respiratory: Chest non-tender. Clear bilateral breath sounds, no crackles, no wheezing. Cardiovascular/Chest: Regular rate and rhythm. No murmurs. No JVD. Peripheral Pulses: 2+ Radial (R). 2+ Radial (L). 2+ Pedal (R). 2+ Pedal (L) Abdominal Exam: Normal bowel sounds. Soft. normal abdomen, no visible veins. No hepatospenomegaly. No masses, right CVA tenderness, right lower quadrant tenderness Ankle Exam: Negative ankle edema Lower extremities: Negative lower extremity edema Neuro/Mental Status: A&O x4. Coherent. Thoughts/Psych: Normal thought pattern. Appropriate mood and affect. Good judgement and insight Skin Exam: Normal inspection. Normal color. Warm. Dry PRINCESS: no external hemorrhoids seen , normal sphincter tone, empty rectal vault, no bleeding Nurse Bridget was present during the examination laboratory and microbiology Laboratory Tests 01/15/25 04:46 Test 01/15/25 04:46 Range/Units Serum Glucose 110 H 74-106 mg/dL Microbiology Date/Time Source Procedure Growth Status 01/14/25 11:12 Voided Urine Urine Culture - Preliminary No growth Resulted Labs and/or images reviewed: Labs reviewed by me, Image(s) reviewed by me Problem List/Assessment/Plan Problem List/Assessment/Plan # Acute right hydronephrosis # Obstructing right ureteral nephrolithiasis # Bilateral renal calculi, nonobstructing -abdomen/pelvis CT- moderate to severe right hydronephrosis secondary to 0.9 cm calculus in the distal right ureter, tortuous ureter with probable additional 0.4 cm calculus in mid ureter, nonobstructing bilateral renal calculi -urology consult-right PNT placement, outpatient right URSLL -IR consult - percutaneous nephrostomy tube not placed as no hydronephrosis was visualized -straining of urine -bladder ultrasound- bilateral ureteral jets not definitively visualized -tamsulosin 0.4 mg po qpm -Dilaudid 0.5 mg q.4 PRN -IV ceftriaxone 1 g daily -urine culture pending -KUB- no renal stone # Right hepatic nodule, rule out malignancy -abdominal/pelvic CT showed 5.3 cm hypodensity in right hepatic lobe -liver ultrasound showed coarsened liver echotexture suggestive of chronic liver disease, echogenic mass measuring 4.4 cm in right hepatic lobe -MRI abdomen/pelvis with oral and IV contrast- 5.6 cm right hepatic lobe hemangioma -stool occult blood, pending -CEA 6.6 -AFP is 2.2, CA19-9 is 3, CA125 is 16 -stool occult blood-pending # Hypertensive urgency -metoprolol 50 mg p.o. daily and lisinopril 20 mg p.o. daily # Colonic diverticulosis without diverticulitis PUD prophylaxis: Not indicated DVT prophylaxis: Patient is ambulating Goals of care: Full code, discussed for >23 minutes Plan discussed with patient Plan discussed with Dr. Tapia Plan discussed with: Patient My Orders My Orders Orders - PRECIOUS URBINA Procedure Category Date Status Time Stool Occult Blood LAB 01/14/25 Logged 15:30 Metoprolol Tartrate PHA 01/15/25 In Process Tablet (Lopressor Ta 10:00 Us Guidance For US 01/15/25 Resulted Needle Placeme 13:18 Date of Service: Jan 15, 2025 Billing Provider: DEBORA TAPIA MD Common Visit Codes: [id number] INP/OBS CARE(HIGH) PRECIOUS URBINA RESIDENT Jan 15, 2025 15:28
[2025-01-15] MEDS ORDERED: TRAM-626 PO (17:17)
[2025-01-15] MEDS ORDERED: TAMS-35 PO (17:18)
[2025-01-15] MEDS ORDERED: CEPH250C PO (17:18)
--- NOTE | 2025-01-15 17:57 | DVH ---
Exam: XY KUB ABDOMEN SINGLE VIEW Indication: Kidney Stone Comparison: None Technique: 1 radiographic view of the abdomen. Findings: Nonobstructive bowel gas pattern noted. There is no definite evidence for pneumoperitoneum. No abnormal calcifications noted. Impression: 1. No radiographically evident renal stone.
[2025-01-16 01:00] VITALS: BP 134/72; PULSE 69; RESP 18; TEMP 98; O2SAT 93
[2025-01-16 05:00] VITALS: BP 139/84; PULSE 65; RESP 16; TEMP 98.2; O2SAT 95
[2025-01-16 08:00] VITALS: PULSE 59; RESP 16; O2SAT 94
[2025-01-16 09:19] VITALS: BP 149/89; PULSE 59; RESP 16; TEMP 98.2; O2SAT 95
[2025-01-16 09:36] LABS: Sodium 143 mmol/L (136-145)
[2025-01-16 09:37] LABS: Anion Gap 11 (5-15); Calcium 9.3 mg/dL (8.7-10.4); Carbon Dioxide 25 mmol/L (20-31)
[2025-01-16 09:38] LABS: Chloride 107 mmol/L (98-107); Potassium 3.3 mmol/L (3.5-5.1)
[2025-01-16 09:42] LABS: BUN/Creatinine Ratio 14.8 (10.0-20.0); Blood Urea Nitrogen 9 mg/dL (9-23)
[2025-01-16 09:44] LABS: Glucose 172 mg/dL (74-106)
[2025-01-16] MEDS: LACTULOSE 20Gm/30ML SOLN PO ONE (11:23)
[2025-01-16] MEDS: POTASSIUM EFFERVESENT TAB 25 MEQ PO ONE (11:24)
--- NOTE | 2025-01-16 12:07 | DVHDSRES ---
Discharge Summary Date of Admission Resident Creating Document: PRECIOUS URBINA RESIDENT Jan 14, 2025 at 05:30 Date of Discharge: Jan 16, 2025 Admitting Diagnosis Acute right flank pain due to obstructing right ureteral nephrolithiasis Wounds: No open wound was present Labs/Diagnostic Data: Laboratory Results Test 01/16/25 08:44 01/15/25 04:46 01/14/25 21:51 01/14/25 18:17 Sodium Level 143 mmol/L (136-145) Potassium Level 3.3 mmol/L (3.5-5.1) Chloride Level 107 mmol/L (98-107) Carbon Dioxide Level 25 mmol/L (20-31) Anion Gap 11 (5-15) Blood Urea Nitrogen 9 mg/dL (9-23) Creatinine 0.61 mg/dL (0.550-1.02) Glomerular Filtration Rate Calc 94 mL/min (>90) BUN/Creatinine Ratio 14.8 (10.0-20.0) Serum Glucose 172 mg/dL (74-106) Calcium Level 9.3 mg/dL (8.7-10.4) White Blood Count 7.6 10^3/uL (4.4-10.8) Red Blood Count 4.58 10^6/uL (4.0-5.20) Hemoglobin 14.7 g/dL (12.2-16.2) Hematocrit 42.8 % (36.0-46.0) Mean Corpuscular Volume 93.4 fL (80.0-100.0) Mean Corpuscular Hemoglobin 32.1 pg (28.0-32.0) Mean Corpuscular Hemoglobin Concent 34.3 g/dL (32.0-36.0) Red Cell Distribution Width 13.5 % (11.8-14.3) Platelet Count 238 10^3/uL (140-450) Mean Platelet Volume 9.0 fL (6.9-10.8) Neutrophils (%) (Auto) 74.7 % (37.0-80.0) Lymphocytes (%) (Auto) 17.5 % (10.0-50.0) Monocytes (%) (Auto) 6.4 % (0.0-12.0) Eosinophils (%) (Auto) 0.5 % (0.0-7.0) Basophils (%) (Auto) 0.9 % (0.0-2.0) Neutrophils # (Auto) 5.7 10 ^3/uL (1.6-8.6) Lymphocytes # (Auto) 1.3 10 ^3/uL (0.4-5.4) Monocytes # (Auto) 0.5 10 ^3/uL (0-1.3) Eosinophils # (Auto) 0 10 ^3/uL (0-0.8) Basophils # (Auto) 0.1 10 ^3/uL (0-0.2) Nucleated Red Blood Cells 0.0 % POC Glucose 127 mg/dl (70-106) Prothrombin Time 10.7 sec (9.3-11.8) Prothrombin Time INR 1.01 (0.9-1.15) Activated Partial Thromboplast Time 29.3 SEC (24.5-34.5) Test 01/14/25 11:12 01/14/25 10:15 01/14/25 08:32 01/14/25 06:19 Urine Color Colorless (Yellow) Urine Clarity Clear (Clear) Urine pH 6.0 (5.0-9.0) Urine Specific [place] 1.003 (1.001-1.035) Urine Protein Negative (Negative) Urine Ketones Negative (Negative) Urine Blood 1+ /uL (Negative) Urine Nitrite Negative (Negative) Urine Bilirubin Negative (Negative) Urine Urobilinogen Normal mg/dL (Negative) Urine Leukocyte Esterase Negative /uL (Negative) Urine RBC None seen /hpf (0 - 4) Urine Microscopic WBC 2 /HPF (0-5) Urine Squamous Epithelial Cells None seen /hpf (<5) Urine Bacteria None seen /hpf (None Seen) Urine Glucose Normal mg/dL (Normal) Urine Opiates Screen Neg (NEGATIVE) Urine Fentanyl Screen Neg (NEGATIVE) Urine Barbiturates Screen Neg (NEGATIVE) Urine Phencyclidine Screen Neg (NEGATIVE) Urine Amphetamines Screen Neg (NEGATIVE) Urine Benzodiazepines Screen Neg (NEGATIVE) Urine Cocaine Screen Neg (NEGATIVE) Urine Cannabinoids Screen Pos (NEGATIVE) Tumor Marker Alpha Fetoprotein 2.2 ng/mL (0.0-9.2) CA 19-9 Antigen 3 U/mL (0-35) CA 125 Antigen 16.0 U/mL (0.0-38.1) Hemoglobin A1c 4.9 % A1C (<5.7) Magnesium Level 2.0 mg/dL (1.6-2.6) Total Bilirubin 1.9 mg/dL (0.2-1.0) Direct Bilirubin 0.3 mg/dL (<0.3) Aspartate Amino Transferase (AST) 38 U/L (13-40) Alanine Aminotransferase (ALT) 26 U/L (7-40) Alkaline Phosphatase 97 U/L (46-116) Total Protein 7.1 g/dL (5.7-8.2) Albumin 4.3 g/dL (3.2-4.8) Carcinoembryonic Antigen 6.60 ng/mL (<=5.0) Vitamin B12 Level 564 pg/mL (211-911) Vitamin D 25-Hydroxy 53.3 ng/mL (30.0-100) Thyroid Stimulating Hormone (TSH) 0.61 uIU/mL (0.55-4.78) Other Laboratory Tests 01/16/25 08:44 01/15/25 04:46 Brief Hx & Hospital Course: Tabitha Hopkins is a 74-year old female with past medical history of hypertension who presented to the ED with the 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 The patient stated that the pain started in the right lower quadrant and radiated to the right flank and back, rated as 10/10 in intensity, with no aggravating or relieving factors. It was associated with nausea, vomiting, rectal pressure and decreased urine output. The patient stated that she had an episode of similar pain 3 weeks back and was due to get CT abdomen outpatient, when she had a recurrence of the pain and had to come to the ED. She denied any fever, chills, fatigue or recent weight loss. Chest CT showed moderate to severe right hydronephrosis secondary to 0.9 cm calculus in the distal right ureter and additional nonobstructing bilateral renal calculi. Electrolytes were monitored and repleted as required. MRI abdomen showed 5.6 cm right hepatic lobe hemangioma. Results for tumor markers are AFP is 2.2, CA19-9 is 3 and CA125 is 16, all within normal limits. CEA is 6.6. Patient was scheduled for percutaneous nephrostomy tube placement, but it was not placed as no hydronephrosis was visualized. KUB showed no radiographic evidence of renal stone. Patient may have passed the stone. She was given lactulose for constipation, after which he had 1 bowel movement. She was discharged home in a stable condition with Keflex for 5 days and tamsulosin and tramadol . All medications and recommendations were thoroughly explained to the patient and she demonstrated understanding of the same. She was recommended to follow up with PCP and in discharge clinic in 1-2 weeks. Past medical history: Hypertension Past surgical history: Cholecystectomy Social & Personal history: Lives at home with family Smoking: smokes marijuana alcohol, other drugs, tobacco: Denies Allergies: Morphine, surgical tape Physical examination on the day of discharge: General Appearance: Cooperative. Well developed. Well nourished. NAD Head Exam: Normal inspection Neck Exam: Normal inspection. Non-tender. Normal alignment Pulmonary/Respiratory: Chest non-tender. Clear bilateral breath sounds, no crackles, no wheezing. Cardiovascular/Chest: Regular rate and rhythm. No murmurs. No JVD. Peripheral Pulses: 2+ Radial (R). 2+ Radial (L). 2+ Pedal (R). 2+ Pedal (L) Abdominal Exam: Normal bowel sounds. Soft. normal abdomen, no visible veins. No hepatosplenomegaly. No masses, mild tenderness in lower abdomen Ankle Exam: Negative ankle edema Lower extremities: Negative lower extremity edema Neuro/Mental Status: A&O x4. Coherent. Thoughts/Psych: Normal thought pattern. Appropriate mood and affect. Good judgement and insight Skin Exam: Normal inspection. Normal color. Warm. Dry PRINCESS: no external hemorrhoids seen , normal sphincter tone, empty rectal vault, no bleeding Nurse Bridget was present during the examination Goals of care discussed with the patient for 20 minutes; full code Counseled on marijuana use cessation for 16 minutes on the day of discharge Discussed with Dr. Soriano Consults/Reason for consult Urology was consulted for obstructing renal stone Operations or Procedures 1.PROCEDURE(s): ABPL - CT AB PEL WO CON-NO ORAL OR IV REASON: Flank Pain ORDER NUMBER(s): [id number], ACCESSION NUMBER(s): [id number] Exam: CT CT AB PEL WO CON-NO ORAL OR IV History: Flank Pain Comparison Study: None TECHNIQUE: Multidetector CT of the abdomen and pelvis was performed from lung bases to pubic symphysis. Imaging was performed without IV contrast. Axial, coronal and sagittal multiplanar reformats were obtained from the axial data set by the technologist. Radiation optimization: All CT scans at this facility use at least one of these dose optimization techniques: automated exposure control mA and/or kV adjustment per patient size (includes targeted exams where dose is matched to clinical indication) or iterative reconstruction. Radiation Dose Information: CT Dose: CTDI volume is 5.64 mGy. Dose-length product is 299.46 mGy*cm FINDINGS: Evaluation of solid organs is limited due to lack of intravenous contrast use. Imaged portions of the lung bases appear unremarkable. There are coronary artery calcifications. Calcified left hilar lymph node. There is a small to moderate hiatal hernia. Several hypodensities within the liver appear to represent cysts, however there is a ill-defined hypodensity measuring 5.3 cm in the right hepatic lobe which is indeterminate. Several hepatic calcifications. Gallbladder appears absent. Spleen, pancreas appear unremarkable. The adrenal glands appear mildly prominent without focal nodule. There is moderate to severe right hydronephrosis secondary to 0.9 cm calculus in the distal right ureter the ureter is tortuous with potentially a additional 0.4 cm calculus in the mid ureter. 3 additional 1 mm calculi are noted in the right kidney and 2 additional nonobstructing 1 mm calculi are noted in the left kidney. There is perinephric fat stranding and fluid. No evidence of bowel obstruction or focal bowel wall thickening. Scattered colonic diverticulosis. Chronic appearing compression deformity of L2 and T12. No suspicious osseous lesion. IMPRESSION: 1. Moderate to severe right hydronephrosis secondary to 0.9 cm calculus in the distal right ureter. The ureter is tortuous with probable additional 0.4 cm calculus in the mid ureter. 2. Additional nonobstructing bilateral renal calculi. 3. Indeterminate 5.3 cm hypodensity in the right hepatic lobe, neoplasm must be excluded. Recommend further evaluation with nonemergent CT/ MRI of the abdomen with and without contrast. 4. Small to moderate hiatal hernia. 5. Colonic diverticulosis. 2.PROCEDURE(s): LIVUS - LIVER REASON: hypodense lesion in the liver ORDER NUMBER(s): [id number], ACCESSION NUMBER(s): [id number] INDICATION: hypodense lesion in the liver TECHNIQUE: Multiple real-time sonographic images were obtained of the right upper quadrant. COMPARISON: US ABDOMEN COMPLETE on DOS: 10/10/21 FINDINGS: The liver demonstrates heterogeneous echotexture. There is a echogenic mass measuring 4.4 cm. Hepatic cysts measuring up to 2.8 cm. The liver measures 14 cm. There is no intrahepatic or extrahepatic ductal dilatation. The common duct measures 5 mm. Gallbladder is surgically absent. The right kidney measures 10 cm. The right kidney is normal in contour, size, and shape. The echogenicity is normal. Hydronephrosis is better seen on recent CT. The pancreas is not well visualized due to overlying bowel gas. IMPRESSION: Coarsened liver echotexture suggestive of chronic liver disease. Echogenic mass measuring 4.4 cm in the right hepatic lobe is suspicious. Recommend further evaluation MRI liver phase protocol. 3.PROCEDURE(s): BLDR - BLADDER REASON: look for ureteral jetting ORDER NUMBER(s): [id number], ACCESSION NUMBER(s): [id number] Technique: Real-time ultrasound images through the bladder. Indication: look for ureteral jetting Comparison: 01/14/2025 Findings: Bladder volume of 88 cc. Bladder wall measures 3 mm in thickness. The bilateral ureteral jets are not definitively visualized Impression: Bilateral ureteral jets not definitively visualized. 4.PROCEDURE(s): CARIN - ABDOMEN WITH CONTRAST REASON: ORDER NUMBER(s): [id number], ACCESSION NUMBER(s): [id number] CLINICAL HISTORY: ABNORMAL CT TECHNIQUE: MRI of the abdomen was performed with and without IV contrast. COMPARISON: US ABDOMEN COMPLETE on DOS: 10/10/21 FINDINGS: The spleen, pancreas, adrenal glands, and left kidney are unremarkable. The gallbladder is absent. There is [id number] right hydroureteronephrosis and perinephric fluid secondary to stone seen on CT performed earlier in the day. At the right hepatic dome, there is a 5.6 cm T2 hyperintense lesion which demonstrates arterial discontinuous hyperenhancement which increases on portal venous and equilibrium phase images, and compatible with a hemangioma. There are numerous scattered liver cysts. The abdominal aorta is normal in course and caliber. There is no free intraperitoneal fluid. No enlarged lymph node is see n. IMPRESSION: 5.6 cm right hepatic lobe hemangioma. [id number] right hydroureteronephrosis with perinephric fluid. This is secondary to distal ureteral stone seen on CT performed earlier in the day. Cholecystectomy. 5.PROCEDURE(s): THOUS - US GUIDANCE FOR NEEDLE PLACEME REASON: NEPH TUBE INSERTION ORDER NUMBER(s): [id number], ACCESSION NUMBER(s): [id number] US US GUIDANCE FOR NEEDLE PLACEME HISTORY: NEPH TUBE INSERTION TECHNICAL DATA: Transverse and longitudinal sonographic images were obtained of the right kidney. COMPARISON: US LIVER on DOS: 01/14/25, US ABDOMEN COMPLETE on DOS: 10/10/21 FINDINGS: IMPRESSION: Ultrasound guidance was used in attempt to access the right kidney. However the renal collecting system was nondilated and no hydronephrosis was visualized. The patient may have passed her stone, or the collecting system decompressed itself. No nephrostomy tube was placed. 6.PROCEDURE(s): KUB - KUB ABDOMEN SINGLE VIEW REASON: Kidney Stone ORDER NUMBER(s): [id number], ACCESSION NUMBER(s): [id number] Exam: XY KUB ABDOMEN SINGLE VIEW Indication: Kidney Stone Comparison: None Technique: 1 radiographic view of the abdomen. Findings: Nonobstructive bowel gas pattern noted. There is no definite evidence for pneumoperitoneum. No abnormal calcifications noted. Impression: 1. No radiographically evident renal stone. Condition at Discharge: Stable Final Diagnosis/Problems List Acute right hydronephrosis Acute obstructing right ureteral nephrolithiasis Bilateral renal calculi, nonobstructing Right hepatic hemangioma Hypertensive urgency Colonic diverticulosis without diverticulitis Discharge Disposition: Home Discharge Instruct/Medications Diet: Cardiac 2g Na,low cholest Activity: No Restrictions, As Tolerated Follow Up/Referral: folow up in dc clinic in 1-2 weeks follow up with PCP in 1-2 weeks Scheduled Cephalexin (Keflex Capsule), 500 MG PO TID Clonidine Hydrochloride (Clonidine Hcl), 1 TAB PO BID, (Reported) Fluoxetine HCl (Fluoxetine HCl), 2 CAP PO QAM, (Reported) Tamsulosin Hcl (Flomax), 0.4 MG PO QAM Scheduled PRN Tramadol HCl (Tramadol HCl), 50 MG PO Q8HP PRN Miscellaneous Medications Simvastatin (Simvastatin), 1 TAB PO, (Reported) Discharge Statement: "Patient was advised to return to the ER or call 911 if any headaches, dizziness, shortness of breath, chest pain, abdominal pain, bleeding, fevers, or worsening of medical condition. Patient was counseled about treatment plan, medications, possible side effects, patientverbalized understanding. All questions were answered to the best of my ability. This discharge took greater then 30 minutes in planning, reviewing documentation, counseling the patient, and discussing with other team members." ASSESSMENT ASSESSMENT Assessment Acute right nephrolithiasis Acute right hydronephrosis Date of Service: Jan 16, 2025 Billing Provider: HAFSA SORIANO MD Common Visit Codes: 40032-OYM/OBS DISCH DAY >30min Secondary Visit Codes: 67177-SLJZJ CHNG SMOKING >10MIN (Counseled on marijuana use cessation for 16 minutes on the day of discharge), 51579-[id number] CARE PLAN 30 MINUTES (20 minutes) PRECIOUS URBINA RESIDENT Jan 16, 2025 12:07 KORTNEY AGUILERA RESIDENT Jan 16, 2025 18:24 HAFSA SORIANO MD Jan 19, 2025 07:13
[2025-01-16 13:00] VITALS: BP 149/85; PULSE 63; RESP 16; TEMP 98.4; O2SAT 93
[2025-01-16 14:04] VITALS: BP 149/89; PULSE 59; RESP 16; TEMP 98.2; O2SAT 95
--- NOTE | 2025-01-19 08:06 | ECG ---
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
== END 2025-01-16 15:40 | disposition home or self-care (01) | DRG 690 ==
LOC: ER 01:35 → OVERFLOW 05:30 → WEST WING 05:45
PROVIDERS: ADMIT Internal Medicine; ATTEND Internal Medicine
DX: N13.6 Pyonephrosis (principal); I16.0 Hypertensive urgency; K44.9 Diaphragmatic hernia without obstruction or gangrene; K57.30 Diverticulosis of large intestine without perforation or abscess without bleeding; I10 Essential (primary) hypertension; D18.09 Hemangioma of other sites; Z79.899 Other long term (current) drug therapy
CPT/HCPCS: 36415; 74018; 74176; 74181; 76705; 76857; 76942; 80048; 80053; 80076; 80307; 81001; 82105; 82306; 82378; 82607; 82962; 83036; 83735; 84443; 85025; 85610; 85730; 86301; 86304; 87086; 93005; 99152; G0378; J2003; J2250; J2405; Q9967